=== PATIENT | male | born 2005 | race Caucasian/White ===

== ENCOUNTER 2024-05-31 06:01 | Emergency (ER) | payer SELFPAY ==
[~2024-05-31] VITALS: Ht 182.9 cm; Wt 70.3 kg
[2024-05-31 07:39] LABS: APPEARANCE,URINE CLEAR (CLEAR); BILIRUBIN,URINE NEGATIVE (NEGATIVE); BLOOD, URINE NEGATIVE Ery/uL (NEGATIVE); COLOR,URINE YELLOW (YELLOW); KETONES,URINE NEGATIVE (NEGATIVE); LEUKOCYTE ESTERASE ,URINE NEGATIVE (NEGATIVE); NITRITE, URINE NEGATIVE (NEGATIVE); PH,URINE 6.5 (5.0-8.0); PROTEIN,URINE NEGATIVE (NEGATIVE); UGLUCOSE NEGATIVE (NEGATIVE); UROBILINOGEN,URINE 0.2 EU/dL (0.2)
[2024-05-31 08:02] VITALS: BP 118/71; TEMP 98.1; O2SAT 98
== END 2024-05-31 08:02 | disposition home or self-care (01) ==
LOC: ER 06:07
DX: N50.82 Scrotal pain (principal); F19.10 Other psychoactive substance abuse, uncomplicated; Z60.2 Problems related to living alone